=== PATIENT | male | born 1955 | race Caucasian/White ===

== ENCOUNTER → 2016-11-17 | Outpatient (CLI) | payer BC ==
[~2016-11-17] MED LIST: DOXY100C76 PO; LAMO200T PO; LSNP/30 PO; TAMS0.4C38 PO; WLLSR/200 PO
== END | disposition home or self-care (01) ==
LOC: C.PATHSPEC 15:35
PROVIDERS: ATTEND Dentist Oral and Maxillofacial Surgery
DX: M27.40 Unspecified cyst of jaw (principal)